=== PATIENT | male | born 1995 | race Caucasian/White ===

== ENCOUNTER 2018-03-19 20:52 | Emergency (ER) | payer OTHER ==
[~2018-03-19] VITALS: Ht 189.2 cm; Wt 85.7 kg
[2018-03-19 20:55] VITALS: Ht 189.2 cm; Wt 85.7 kg
[2018-03-19] MEDS ORDERED: LANS15CA27 PO (21:44)
[2018-03-19] MEDS ORDERED: SERT-234 PO (21:44)
--- NOTE | 2018-03-19 22:07 | EMERGENCY ROOM VISIT NOTE ---
History First contact with patient: 21:10 Chief Complaint: LACERATION/CUT (SUT/DERMABOND) Stated Complaint: CUT LEFT THUMB Nursing Triage Summary: Pt was cooking dinner and cut his left thumb on a knife. History of Present Illness The patient is a 22 year old male who presents to the Emergency Room with complaints of a laceration to his left thumb. He reports that he was making dinner tonight and accidentally cut his left thumb on a sharp knife. He rates his current discomfort a 3/10. He believes that his tetanus is up-to-date. He denies any numbness or weakness. He denies any other injuries. Review of Systems A complete 6 point review of systems was reviewed with the patient with pertinent positives and negatives as per history of present illness. All else were negative. Past Medical/Surgical History Medical Problems: (1) No significant active problems Social History Smoking Status: Current Every Day Smoker Housing Status: lives with family Occupation Status: employed Current/Historical Medications Scheduled Lansoprazole (Prevacid), 15 MG PO DAILY Sertraline (Zoloft), 100 MG PO DAILY Physical Exam Vital Signs Date Time Temp Pulse Resp B/P (MAP) Pulse Ox O2 Delivery O2 Flow Rate FiO2 03/19/18 22:15 76 18 124/76 98 03/19/18 20:55 36.6 68 18 103/69 96 Room Air Physical Exam VITALS: Vitals are noted on the nurse's note and reviewed by myself. Vital signs stable. GENERAL: This is a 22-year-old male, in no acute distress, nondiaphoretic, well- developed well-nourished. SKIN: There is a 1.5 cm curved laceration to the lateral aspect of the distal right thumb. Laceration does not involve the fingernail. Capillary refill within 2 seconds. MUSCULOSKELETAL: Full range of motion of the right thumb. NEURO: Patient was alert and oriented to person place and time. Distal sensation intact. Medical Decision & Procedures Procedure Verbal consent was obtained to perform the procedure. The wound was cleansed with sterile saline and Betadine. The laceration was repaired using Dermabond skin glue. Hemostasis was achieved. The patient tolerated the procedure well. No complications were met. Medical Decision The patient was evaluated as above. The bleeding did stop after application of a pressure dressing for a few minutes. Options of care were discussed with the patient including skin glue versus sutures and he prefers Dermabond. Dermabond repair was performed as noted in the procedure section. Wound care instructions were discussed with the patient. He verbalized understanding of my assessment and treatment plan and was discharged home in good condition. Medication Reconcilliation Current Medication List: was personally reviewed by me Blood Pressure Screening Patient's blood pressure: Normal blood pressure Impression Primary Impression: Laceration of finger Departure Information Dispostion Home / Self-Care Condition GOOD Referrals No Doctor, Assigned (PCP) Patient Instructions My [facility] Additional Instructions Allow the skin glue to fall off on its own over the next 3-4 days. You may wash her hands normally. Do not apply any ointments or lotions to the glue. For pain control, you can use the following xico-vlx-wozrgdd medicines (if >12 yo): - Regular strength (325mg/tab) Tylenol (acetaminophen) 2 tabs every 4-6 hours as needed. Do not exceed 12 tablets in a 24 hour period. Avoid taking more than 4 grams (4000 mg) of Tylenol per day. This includes any other sources of acetaminophen you may take on a regular basis. - Regular strength (200 mg/tab) Advil (ibuprofen) 1-2 tabs every 4-6 hours as needed. Do not exceed a dose of 3200 mg per day. Watch for any signs of infection such as increasing redness, swelling, drainage from the wound or any other new/concerning symptoms. If these occur, return to the emergency department or see your primary care provider. Problem Qualifiers Primary Impression: Laceration of finger Encounter type: initial encounter Finger: thumb Damage to nail status: without damage Foreign body presence: without foreign body Laterality: right Qualified Codes: S61.011A - Laceration without foreign body of right thumb without damage to nail, initial encounter
[2018-03-19 22:15] VITALS: BP 124/76; PULSE 76; O2SAT 98
== END 2018-03-19 22:16 | disposition home or self-care (01) ==
LOC: C.EDB 20:54 → C.EDC 22:16
DX: S61.012A Laceration without foreign body of left thumb without damage to nail, initial encounter (principal); W26.0XXA Contact with knife, initial encounter; F17.200 Nicotine dependence, unspecified, uncomplicated